=== PATIENT | male | born 1960 | race Caucasian/White ===

== ENCOUNTER 2022-08-05 11:19 | Inpatient (IN) | payer OTHER, SELFPAY ==
[2022-08-04 11:56] VITALS: BMI 31.6
[2022-08-05] VITALS (18 sets, daily range): BP systolic 110–175; BP diastolic 54–98; PULSE 49–74; RESP 8–99; TEMP 35.5–36.2; O2SAT 12–100; BMI 32.2
--- NOTE | 2022-08-05 | DI.RAD.S_ITS ---
PROCEDURE: XR CERVICAL SPINE 2V OR 3V INDICATIONS: ACDF TECHNIQUE: 2 intraoperative view(s) of the cervical spine were acquired. COMPARISON: None. FINDINGS: Intraoperative spot films are submitted and demonstrate anterior fusion of the mid cervical spine. IMPRESSION: Mid anterior cervical spine fusion. Dictated by: Marjorie Lance M.D. on 08/05/2022 at 16:00 Transcribed by: MICHAELA on 08/05/2022 at 16:00 Approved by: Marjorie Lance M.D. on 08/05/2022 at 16:45
[2022-08-05 12:10] LABS: COVID19 -Nasal RAPID Negative (Negative)
--- NOTE | 2022-08-05 12:13 | PM.PREOP ---
Pre-operative Note COVID-19 COVID-19 status: Negative Result date/Date tested (Pos, Neg/Pending): 08/04/22 Criteria for continued procedure: Expected advancement of disease process, Possibility delay results in more complex future surgery or treatment, Increased loss of function, Continuing or worsening of significant or severe pain, Deterioration of the patient's condition or overall health and Delay expected to result in less-positive ultimate med/surg outcome Interval Note History & Physical reviewed/Exam performed by Physician: Yes Changes to H&P: No
[2022-08-05] MEDS: CEFAZOLIN 2 GM/100 ML PREMIX 100 ML IV ×2 (13:10→20:55)
--- NOTE | 2022-08-05 13:41 | SUR.OPER ---
Supine, head on gel donut. Arms padded with gel pads, tucked at sides, towel roll under shoulders. Safety belt at thigh. Legs uncrossed.
[2022-08-05] MEDS: BUPIVACAINE 0.25% (PF) 10 ML, EPINEPHrine 0.3 MG INJ (13:46)
[2022-08-05] MEDS: LACTATED RINGERS 1,000 ML 42 ML IV (15:00)
--- NOTE | 2022-08-05 15:34 | PM.OP.1 ---
Operative Date/Time/Diagnoses Date of procedure: 08/05/22 Time of procedure: 13:00 Pre-op diagnosis: 1. C4-5 pseudoarthrosis with previous fusion 2. Cervical spinal stenosis C4-5 with radiculopathy 3. Anterior instrumentation loosening with C5 broken screws Post-op diagnosis: same Procedure & Clinicians Procedure: 1. C4-5 anterior cervical discectomy and fusion 2. C4-5 anterior interbody cage placement 3. C4-5 anterior instrumentation with plate and screw placement at C4-5 4. C3-5 anterior instrumentation removal, exploration of fusion C3-4, C4-5 5. Utilization of microsurgical technique and operating microscope Same procedure as scheduled: Yes Indications: Patient has been having chronic neck pain and worsening cervical radiculopathy. Patient had previous cervical fusion with x-ray showing loose and broken cervical hardware at C5 vertebrae along with pseudoarthrosis of C4-5 confirmed on the MRI of the cervical spine. Patient failed multiple conservative management with worsening pain weakness and numbness in his upper extremity. Patient has been having difficulty performing activity of daily living. After discussing risks benefits of treatment options, patient elected proceed with surgery. Surgeon: Jaylin Delarosa Cutting Supervisor: Eugenia Roldan Click Yes if Unassisted: No Anesthesia Type: General Operative Notes Closure Type: primary Specimen(s): none sent Prosthetic devices, grafts, tissues, transplants, or devices: Globus Extend Plate, Hedron C cage Estimated Blood Loss (mL): 5 Blood products transfused: none Procedure in detail: Patient was seen in the preoperative area. Risks and benefits of the surgery was discussed with the patient. Operative consent was obtained and placed in the chart. Patient was then taken to the operative room. Prophylactic antibiotic was given less than 0.5 hr prior to skin incision. General anesthesia was administered. Patient was placed into a supine position on her radiolucent table. Bilateral shoulders were taped down to allow proper C-arm imaging. Anterior cervical area was prepped and draped in a sterile fashion. Time-out was performed at this time. Using lateral C-arm imaging, the level between C3 and C5 was identified and marked on patient's neck. A oblique incision from midline towards medial border of sternocleidomastoid muscle was made. The platysma muscle was incised in line with skin incision. Metzenbaum scissor was used to develop the plane between the medial border of sternocleidomastoid d and the strap muscles medially. The carotid sheath and its contents were identified and protected behind the hand-held retractor during the entire case. The plane between the carotid sheath and strap muscles was developed with Metzenbaum scissors. Dissection was made down to the level of the anterior cervical fascia. Longus colli muscle was incised on the anterior aspect of vertebral bodies bilaterally from C3-C5. At this time the previously placed hardware rest exposed from C3-5. Screwdriver was used to unlock the screws from the plate. Screwdriver was then used to remove the screws from the vertebral bodies. The top 4 screws had reasonable purchase wall the bottom 2 screws had minimal purchase since the shaft of the screws were broken inside the vertebral body from pseudoarthrosis at C4-5 level. After the screw was removed the plate was then removed from the anterior portion of vertebral bodies. The fusion bed was then inspected at this time. C3-4 has a solid fusion. C4-5 is obvious pseudoarthrosis with visible motion between the 2 vertebrae. Using microsurgical technique and operative microscope, anterior cervical diskectomy was performed at C4-5 level. This was done by removing the disc material, removing the anterior and posterior osteophytes posterior longitudinal ligaments along with performing bilateral foraminotomies at the C4-5 level. Patient was found to have severe foraminal stenosis at C4-5 level. Patient's stenosis was fully decompressed after decompression was completed. After the diskectomy was completed, one static anterior interbody cages were obtained. The cages were packed with DBM bone grafting material. One cage each along with the bone grafting material was then packed into the interbody spaces from C4-5 with one cage placed into the C4-5 level. One small piece of DuraGen was placed behind the interbody cage in order to patch a small dural defect identified during the process of the diskectomy. The DuraGen was placed as a prophylaxis for possible CSF leakage. There is no CSF leakage that is able to be detected during the procedure. After the cages were placed, the anterior cervical plate was stabilized to the C4-5 vertebrae using 2 screws at each each level. Total 4 screws were placed. After confirming placement of the hardware with AP and lateral C-arm imaging, the screws were locked into the plate using the locking mechanism and torque limiting screwdriver. After the hardware was placed and confirmed with AP and lateral C-arm imaging, the wound was irrigated with sterile normal saline. The platysma muscle and the subcutaneous tissue was closed with 2-0 Vicryl. The skin was closed with 4-0 Monocryl and Steri-Strips. A JAKY drain was placed deep to the platysma muscle and was sewn and through the skin. Patient tolerated the procedure well. Patient was transferred recovery room in stable condition. There were no complications. The Operation could not have been safely performed without compromising the technical result or length of the procedure, without the assistance of a skilled operating room surgical technologist. The operating room surgical technologist was medically necessary for proper positioning, retraction and manipulation of instruments, proper exposure, surgical preparation, and manipulation of tissue. Complications: none Post-operative Condition: stable Disposition: PACU Plan for aftercare: Admit to inpatient hospital
[2022-08-05] MEDS: MORPHINE 10 MG/ML INJ IV ×2 (16:05→16:10)
[2022-08-05] MEDS: ONDANSETRON 4 MG/2 ML INJ IV (16:31)
[2022-08-05] MEDS: HYDROMORPHONE 2 MG INJ 0.5 MG IV (16:39)
--- NOTE | 2022-08-05 17:19 | SUR.PHASEI ---
Pt transferred to floor with 1 belongings bag.
--- NOTE | 2022-08-05 17:21 | PC.NURSE ---
Pt to room 205 via bed by RHIC SYSTEMS SAFETY ENGINEER. Pt is awake, alert, and oriented x 3. Denies pain, nausea, or shortness of breath. Oriented to room, call lights, bed controls, and tv controls. SCD's on and running. Bed alarm on for safety. Pt agrees to call for assistance as needed and to not get up without staff assistance.
[2022-08-05] MEDS: OXYCODONE IR 10 MG TABLET PO (20:32)
[2022-08-05] MEDS: hydrOXYzine pamoate 25 MG CAPSULE PO (20:33)
[2022-08-05] MEDS: SODIUM CHLORIDE 0.9% FLUSH 10 ML IV (20:54)
[2022-08-05] MEDS: SODIUM CHLORIDE 0.9% 250 ML 21 ML IV (20:54)
[2022-08-05] MEDS: PANTOPRAZOLE DR 20 MG TABLET PO (20:55)
[2022-08-05] MEDS: GABAPENTIN 300 MG CAPSULE PO (20:55)
[2022-08-05] MEDS: ATORVASTATIN 20 MG TABLET PO (20:55)
[2022-08-05] MEDS: SENNOSIDES 8.6 MG TABLET 17.2 MG PO (20:55)
[2022-08-05] MEDS: DOCUSATE 100 MG CAPSULE PO (20:55)
[2022-08-06] MEDS: OXYCODONE IR 10 MG TABLET PO (03:20)
[2022-08-06] MEDS: CEFAZOLIN 2 GM/100 ML PREMIX 100 ML IV (04:57)
[2022-08-06] MEDS: SODIUM CHLORIDE 0.9% FLUSH 10 ML IV (04:57)
--- NOTE | 2022-08-06 06:47 | PM.DS.1 ---
History of Present Illness History of Present Illness Date Patient Seen: 08/06/22 Time Patient Seen: 06:47 Chief complaint: INPT Narrative: Operative Date/Time/Diagnoses Date of procedure: 08/05/22 Time of procedure: 13:00 Pre-op diagnosis: 1. C4-5 pseudoarthrosis with previous fusion 2. Cervical spinal stenosis C4-5 with radiculopathy 3. Anterior instrumentation loosening with C5 broken screws Post-op diagnosis: same Procedure & Clinicians Procedure: 1. C4-5 anterior cervical discectomy and fusion 2. C4-5 anterior interbody cage placement 3. C4-5 anterior instrumentation with plate and screw placement at C4-5 4. C3-5 anterior instrumentation removal, exploration of fusion C3-4, C4-5 5. Utilization of microsurgical technique and operating microscope Same procedure as scheduled: Yes Indications: Patient has been having chronic neck pain and worsening cervical radiculopathy.? Patient had previous cervical fusion with x-ray showing loose and broken cervical hardware at C5 vertebrae along with pseudoarthrosis of C4-5 confirmed on the MRI of the cervical spine. Patient failed multiple conservative management with worsening pain weakness and numbness in his upper extremity.? Patient has been having difficulty performing activity of daily living.? After discussing risks benefits of treatment options, patient elected proceed with surgery. Surgeon: Jaylin Delarosa Photonic Laboratory Technician: Eugenia Roldan Click Yes if Unassisted: No Anesthesia Type: General Operative Notes Closure Type: primary Specimen(s): none sent Prosthetic devices, grafts, tissues, transplants, or devices: Globus Extend Plate, Hedron C cage Estimated Blood Loss (mL): 5 Blood products transfused: none Discharge Providers Provider Date of admission: 08/05/22 11:19 Discharge Date: 08/06/22 Consults: 08/04/22 12:45 Consult to Anesthesiology Routine Comment: Consulting Provider: Anesthesiologist Reason for consultation: PAC courstesy re: Abnormal pre-op EKG 08/05/22 17:16 Consult to Occupational Therapy Evaluate & Treat Comment: Physician Instructions: Evaluate and treat Consult to Physical Therapy Evaluate & Treat Comment: Physician Instructions: Evaluate and Treat Discharge provider: Eugenia Roldan PA-C Summary Hospital Course Discharge Diagnosis: 1. C4-5 pseudoarthrosis with previous fusion 2. Cervical spinal stenosis C4-5 with radiculopathy 3. Anterior instrumentation loosening with C5 broken screws s/p 1. C4-5 anterior cervical discectomy and fusion 2. C4-5 anterior interbody cage placement 3. C4-5 anterior instrumentation with plate and screw placement at C4-5 4. C3-5 anterior instrumentation removal, exploration of fusion C3-4, C4-5 Hospital Course: Mr Valdovinos's hospital course was unremarkable. On POD# 1 he was feeling well and wanted to go home. He complained of some pain with swallowing but was tolerating PO. He said his arms felt better already. He had not yet been evaluated by PT at the time of my visit. His pain was well-controlled with oral medication. Exam Vital Signs (past 8 hours): Oxygen Delivery Method Room Air Oxygen Flow Rate 0 Narrative Exam Narrative: 5/5 wholesale and retail merchant strength, 5/5 strength in biceps, triceps, and deltoids bilaterally. Sensation to light touch intact throughout BUE. Dressing placed intraoperatively is CDI. Objective Labs Labs: Laboratory Results - last 24 hr 08/05/22 11:53 SARS-CoV-2 (PCR) Negative [facility] Medical History (Updated 08/04/22 @ 12:11 by Tory Durand RN) Melgar's esophagus Cervical spinal stenosis GERD (gastroesophageal reflux disease) History of COVID-19 (04/2021) History of COVID-19 (09/2021) HTN (hypertension) Neuropathy Sensitive skin Surgical History (Updated 08/06/22 @ 06:41 by Eugenia Roldan PA-C) H/O vasectomy Hx of appendectomy Hx of bilateral cataract extraction Hx of cholecystectomy Hx of fusion of cervical spine (~2014) Hx of fusion of cervical spine (~2007) Hx of tonsillectomy Social History household members: spouse Smoking Status: Former smoker alcohol intake: current Discharge Assessment & Plan Assessment and Plan Assessment: s/p C4-5 ACDF Plan of Treatment: Discharge home after PT, multimodal pain control, cervical collar for comfort, f/u in office in 2 weeks. Discharge Plan Discharge Plan Patient Disposition: Home Discharge orders & Medications Prescriptions: New docusate sodium 100 mg Capsule 100 mg PO BID PRN (Reason: constipation) Qty: 60 1RF hydroxyzine pamoate 25 mg Capsule 25 mg PO Q4HR PRN (Reason: Nausea And Vomiting) Qty: 90 0RF oxycodone 5 mg tablet 5 mg PO Q4-6H PRN (Reason: pain (scale score 4-6)) Qty: 60 0RF Continued simvastatin 40 mg Tablet 40 mg PO BEDTIME gabapentin 300 mg Capsule 300 mg PO BEDTIME omeprazole 20 mg Capsule,Delayed Release(Dr/Ec) 20 mg PO BEDTIME acetaminophen 500 mg Tablet 500 mg PO DAILY PRN (Reason: Headache) Discontinued ibuprofen 200 mg Tablet 200 - 400 mg PO DAILY PRN (Reason: Pain) Follow up/Referrals: Jaylin Delarosa MD [Physician] - As previously scheduled (Follow up with Sindy Feng PA-C, on 08/19/2022 @ 11:00 am at [facility] office in [place].) Diet/Activity/Treatments Diet: Diet as Tolerated Diet comment: Start with very soft, moist foods. Advance as tolerated. Activity: Cervical collar as needed for comfort. No lifting more than 20 pounds. Cold/Heat Therapy: Heating pad to back of neck/between shoulder blades as needed for pain. Skin/Wound/Dressing Care Report to your healthcare provider any signs of infection, such as:: chills, fever, night sweats, unusual drainage and unusual redness Dressing: May shower; keep dressing as dry as possible. If dressing becomes wet or dirty inside, may remove. Leave steri strips in place until follow up in office. Visit Report/Discharge Packet Instructions: DI for Prescription Opioid Use, DI for Anterior Cervical Discectomy and Fusion Stand Alone Forms: Patient Portal/API, Stroke Signs & Symptoms, Surgery Discharge Quality VTE Deep Vein Thrombosis/Pulmonary Embolism Present on Admission: No
[2022-08-06 08:57] VITALS: BP 162/83; PULSE 48; RESP 16; TEMP 37; O2SAT 95
--- NOTE | 2022-08-06 09:06 | OT.IP.EVAL ---
Current Diagnoses Spinal stenosis, cervical region (08/05/22) Fracture of neck, unspecified, subsequent encounter (08/05/22) Arthrodesis status (08/05/22) Surgery Performed Operation Date: 08/05/22 13:45 Actual Procedures p C4-5 ACDF w. anterior instrumentation, C3-5 plate removal, C4-6 anterior instrumentation - Jaylin Delarosa MD Past Medical History (Last Updated 08/04/22 @ 12:11 by Tory Durand, RN) Melgar's esophagus Cervical spinal stenosis GERD (gastroesophageal reflux disease) History of COVID-19 (04/2021) History of COVID-19 (09/2021) HTN (hypertension) Neuropathy Sensitive skin Surgical History (Last Updated 08/04/22 @ 12:11 by Tory Durand RN) H/O vasectomy Hx of appendectomy Hx of bilateral cataract extraction Hx of cholecystectomy Hx of fusion of cervical spine (~2014) Hx of fusion of cervical spine (~2007) Hx of tonsillectomy Occupational Therapy Inpatient Evaluation/Re-Eval M1 PT/OT-IP Prior Functional Status Start: 08/06/22 09:23 Freq: NEEDED Status: Active Protocol: Document 08/06/22 09:06 [facility] (Rec: 08/06/22 09:33 [facility] [id number]) Medical Review Prior Functional Status Communication independent Mobility and Gait independent with no device Activities of Daily Living and IADL's pain and difficulty to reach over head for needs Social History Household Members spouse Living Arrangements House Number of Stairs To Enter/Railing? Pt has no steps to get into his house. Home Environment High Toilet,Tub/Shower Home Equipment Shower Seat with Backrest,Hand Held Shower,Grab Bars Near Toilet,Grab Bars In Shower Additional Social History Comment Pt's is blind and their daughter will be staying for a few weeks to assist, as normally the pt assists with his 's needs. M2 OT-IP Current Condition Start: 08/06/22 09:23 Freq: Status: Active Protocol: Document 08/06/22 09:06 [facility] (Rec: 08/06/22 09:33 [facility] [id number]) Occupational Therapy Current Condition Current Condition Evaluation Date 08/06/22 Treatment Diagnosis S/p C4-5 ACDF Diagnosis Onset Date 08/05/22 Post Operative Precautions Cervical Spine Precautions Soft Collar for Comfort,No Heavy Lifting,Log Roll M3 OT- IP Subjective and Pain Start: 08/06/22 09:23 Freq: Status: Active Protocol: Document 08/06/22 09:06 [facility] (Rec: 08/06/22 09:33 [facility] [id number]) OT- Subjective Occupational Therapy Visit Type Type Initial Evaluation Visit Start Time 09:06 Visit Stop Time 09:22 Total Visit Minutes 16 Occupational Therapy Visit Comments Patient Comments Pt agreed to get up. Patient/Caregiver Goals To go home OT Pain Assessment Pain When Pain Assessed At Rest Pain Present Pain Present Pain Reported Location Neck Intensity 1 Scale Used Numeric (0 - 10) M4 OT- IP ADL's Start: 08/06/22 09:23 Freq: Status: Active Protocol: Document 08/06/22 09:06 [facility] (Rec: 08/06/22 09:33 [facility] [id number]) OT [id number] Comments OT Self-Feeding Comments Pt states having difficulty to swallow due to soreness and educated on eating softer food , cold food, eat upright and information given to pt for swallowing after ACDF. OT ADL-Grooming General Evaluation Grooming Ability Independent OT ADL-Oral Care General Eval Oral Care Ability Independent Comments Oral Care Comments Pt educated to be mindful of his head positioning when spitting or best to just spit into a cup. OT ADL-Dressing General Eval Lower Body Dressing Ability Independent Comments OT Dressing Comments Pt able to nay/doff his soft collar independently. OT ADL-Toileting Comments OT Toileting Comments Pt states has independently using the toilet on his own in the room. M5 OT- IP IADL's Start: 08/06/22 09:23 Freq: Status: Active Protocol: Document 08/06/22 09:06 [facility] (Rec: 08/06/22 09:33 [facility] [id number]) OT-Instrumental Activities of Daily Living Deficits IADL Deficits Identified Deficits Home Safety Awareness Awareness of Need for Assistance at Home Good Awareness Ability to Problem Solve Emergency Able to Problem Solve Situations Home Safety Comments Pt's daughter to assist with IADl needs. M6 OT- IP Functional Cognition Start: 08/06/22 09:23 Freq: Status: Active Protocol: Document 08/06/22 09:06 [facility] (Rec: 08/06/22 09:33 [facility] [id number]) Cognitive Factors Limiting Selfcare Function Cognitive Ability Level of Alertness Alert Patient Orientation Name,Place,Situation Attention Span Ability Capable of Focused Attention, Capable of Sustained Attention Ability to Follow Commands Able to Follow Multi-Step Commands Cognitive Comments Cognitive Assessment Comments Pt intact and able to follow cervical precautions. M7 OT- IP Mobility and Balance Start: 08/06/22 09:23 Freq: Status: Active Protocol: Document 08/06/22 09:06 [facility] (Rec: 08/06/22 09:33 [facility] [id number]) OT-Transfer Assessment Sit to and From Stand Sit to and from Stand Independent Technique Transfer Destination Bed,Chair Transfer Technique Stand Step Pivot Devices Transfer Assistive Devices None Comments Mobility Comments Pt is independent on level surfaces in the room. OT- Balance Assessment Sitting Balance and Reactions Static Sitting Balance Ability Normal Dynamic Sitting Balance Ability Normal Standing Balance and Reactions Static Standing Balance Ability Normal Dynamic Standing Balance Ability Good M8 OT- IP Objective Assessments Start: 08/06/22 09:23 Freq: Status: Active Protocol: Document 08/06/22 09:06 [facility] (Rec: 08/06/22 09:33 [facility] [id number]) OT-Muscle Tone Assessment Muscle Tone WNL Yes M9 OT- IP Assessment and Plan Start: 08/06/22 09:23 Freq: Status: Active Protocol: Document 08/06/22 09:06 [facility] (Rec: 08/06/22 09:33 [facility] [id number]) OT Summary Assessment and Plan Potential Rehabilitation Potential Excellent Analytic Complexity at Evaluation Low Summary OT Impairments Pain,Bathing Progress Towards Goals Progressing Toward Goals Assessment Summary Pt low complexity and doing well and independent in the room for mobility needs and able to dress and toilet himself at this time. Pt looking to go home today. Pt's daughter to be home for a few weeks as his is blind and needs assist. Goals Bathing Goal Independent Days to Meet Goals 1 Frequency of Treatment Frequency Of Treatment Once a Day Treatment Plan OT Treatment Plan ADL Training,Functional Mobility,Patient/Family Education,Discharge Planning Discharge Recommendations OT Discharge Recommendations Home with Assistance Transportation Needs at Discharge Private Vehicle
--- NOTE | 2022-08-06 10:13 | PC.NURSE ---
Patient is alert and oriented x4. He has a dressing to his anterior neck that is cdi, it is large so dressing will be changed to a smaller one. He refused pain medications and Jagruti stool softner. This is his 3rd neck surgery, patient is discharging home today.
--- NOTE | 2022-08-06 11:00 | PT-IP ANOTE ---
Visited with patient after OT eval. OT reported patient was independent with bed mobility, transfers, and walking without AD. Patient reported no concerns regarding mobility. No skilled PT indicated. Patient safe to d/c home.
== END 2022-08-06 10:40 | disposition home or self-care (01) | DRG 472 ==
PROVIDERS: Admitting Provider Orthopaedic Surgery Orthopaedic Surgery of the Spine; Referring Provider Orthopaedic Surgery Orthopaedic Surgery of the Spine; Visit Provider Orthopaedic Surgery Orthopaedic Surgery of the Spine
PROC: 0RG10A0 Fusion of Cervical Vertebral Joint with Interbody Fusion Device, Anterior Approach, Anterior Column, Open Approach (ICD-10-PCS; principal; 2022-08-05 13:45)
DX: M48.02 Spinal stenosis, cervical region (principal); G97.41 Accidental puncture or laceration of dura during a procedure; M96.0 Pseudarthrosis after fusion or arthrodesis; T84.216A Breakdown (mechanical) of internal fixation device of vertebrae, initial encounter; M54.12 Radiculopathy, cervical region; K21.9 Gastro-esophageal reflux disease without esophagitis; F17.210 Nicotine dependence, cigarettes, uncomplicated; Z20.822 Contact with and (suspected) exposure to COVID-19
CPT/HCPCS: 72040; 76000; 87635; 93005; 93010; 97165; C9803; C1713; J0171; J0330; J0690; J1100; J1170; J2270; J2405; J2704; J3010